=== PATIENT | female | born 1965 | race Caucasian/White ===

== ENCOUNTER 2018-06-20 21:46 | Observation (INO) | payer BC ==
[2018-06-20] MEDS ORDERED: METOCLOPRAMIDE 10 MG INJ IV (22:30)
[2018-06-20] MEDS ORDERED: NITROGLYCERIN (SL) 0.4 MG TAB SL (22:30)
[2018-06-20] MEDS ORDERED: ONDANSETRON 4 MG INJ IV (22:30)
[2018-06-20] MEDS ORDERED: BISACODYL (EC) 5 MG TAB PO (22:30)
[2018-06-20] MEDS ORDERED: morphine 2 MG INJ IV (22:30)
[2018-06-20] MEDS ORDERED: NACL 0.9% 3 ML SYG IV (22:30)
[2018-06-20] MEDS ORDERED: ACETAMINOPHEN 325 MG TAB PO (22:30)
[2018-06-20] MEDS ORDERED: DOCUSATE SODIUM 100 MG CAP PO (22:30)
[2018-06-20 22:49] LABS: ADD MAN DIFF? NO
[2018-06-20 22:50] LABS: BASOPHILS % 0.6 % (0.0-2.0); EOSINOPHILS # 0.1 10^3/ul (0.0-0.5); EOSINOPHILS % 1.8 % (0.0-7.0); HEMATOCRIT 34.3 % (37.0-47.0); HEMOGLOBIN 11.1 g/dl (12.0-16.0); LYMPHOCYTES # 0.8 10^3/ul (0.8-2.9); LYMPHOCYTES % 15.9 % (15.0-51.0); MEAN CORPUSCULAR HEMOGLOBIN 27.9 pg (29.0-33.0); MEAN CORPUSCULAR HGB CONC 32.4 g/dl (32.0-37.0); MEAN CORPUSCULAR VOLUME 86.2 fl (82.0-101.0); MEAN PLATELET VOLUME 10.8 fl (7.4-10.4); MONOCYTE # 0.4 10^3/ul (0.3-0.9); MONOCYTES % 7.5 % (0.0-11.0); NEUTROPHIL # 3.7 10^3/ul (1.6-7.5); NEUTROPHILS % 73.8 % (39.0-77.0); PLATELET COUNT 242 10^3/UL (140-415); RED BLOOD COUNT 3.98 10^6/ul (4.20-5.40); RED CELL DISTRIBUTION WIDTH 13.5 % (11.5-14.5)
[2018-06-20 23:07] LABS: ALANINE AMINOTRANSFERASE 243 IU/L (13-69); ALBUMIN 3.8 g/dl (3.3-4.9); ALBUMIN/GLOBULIN RATIO 1.08; ALKALINE PHOSPHATASE 107 IU/L (42-121); ANION GAP 6 (5-13); ASPARTATE AMINO TRANSFERASE 406 IU/L (15-46); BILIRUBIN,INDIRECT 0.6 mg/dl (0-1.1); BILIRUBIN,TOTAL 0.6 mg/dl (0.2-1.3); BLOOD UREA NITROGEN 13 mg/dl (7-20); CALCIUM 9.2 mg/dl (8.4-10.2); CARBON DIOXIDE 27 mmol/L (21-31); CHLORIDE 106 mmol/L (97-110); CREATINE KINASE 80 IU/L (23-200); CREATININE 0.77 mg/dl (0.44-1.00); Estimated GFR > 60 mL/min (>60); GLUCOSE 122 mg/dl (70-220); POTASSIUM 4.1 mmol/L (3.5-5.1); SODIUM 139 mmol/L (135-144); TOTAL PROTEIN 7.3 g/dl (6.1-8.1)
[2018-06-20 23:19] LABS: CK INDEX 1.1; CK-MB 0.88 ng/ml (0.0-2.4); TROPONIN-I < 0.012 ng/ml (0.000-0.120)
[2018-06-21 05:01] LABS: ADD MAN DIFF? NO
[2018-06-21 05:07] LABS: BASOPHILS % 0.5 % (0.0-2.0); EOSINOPHILS # 0.1 10^3/ul (0.0-0.5); EOSINOPHILS % 2.7 % (0.0-7.0); HEMATOCRIT 33.7 % (37.0-47.0); HEMOGLOBIN 10.9 g/dl (12.0-16.0); LYMPHOCYTES # 0.9 10^3/ul (0.8-2.9); LYMPHOCYTES % 25.1 % (15.0-51.0); MEAN CORPUSCULAR HEMOGLOBIN 28.1 pg (29.0-33.0); MEAN CORPUSCULAR HGB CONC 32.3 g/dl (32.0-37.0); MEAN CORPUSCULAR VOLUME 86.9 fl (82.0-101.0); MONOCYTE # 0.4 10^3/ul (0.3-0.9); MONOCYTES % 10.5 % (0.0-11.0); NEUTROPHIL # 2.3 10^3/ul (1.6-7.5); NEUTROPHILS % 60.9 % (39.0-77.0); PLATELET COUNT 243 10^3/UL (140-415); RED BLOOD COUNT 3.88 10^6/ul (4.20-5.40); RED CELL DISTRIBUTION WIDTH 13.4 % (11.5-14.5)
[2018-06-21 05:07] LABS: WHITE BLOOD COUNT 3.7 10^3/ul (4.8-10.8)
[2018-06-21 05:17] LABS: CREATINE KINASE 76 IU/L (23-200)
[2018-06-21 05:27] LABS: ALANINE AMINOTRANSFERASE 325 IU/L (13-69); ALBUMIN 3.5 g/dl (3.3-4.9); ALBUMIN/GLOBULIN RATIO 1.09; ALKALINE PHOSPHATASE 106 IU/L (42-121); ANION GAP 5 (5-13); ASPARTATE AMINO TRANSFERASE 381 IU/L (15-46); BILIRUBIN,INDIRECT 0.5 mg/dl (0-1.1); BILIRUBIN,TOTAL 0.5 mg/dl (0.2-1.3); BLOOD UREA NITROGEN 12 mg/dl (7-20); CALCIUM 9.5 mg/dl (8.4-10.2); CARBON DIOXIDE 28 mmol/L (21-31); CHLORIDE 108 mmol/L (97-110); CHOL/HDL RATIO 2.7 RATIO; CHOLESTEROL 150 mg/dl (100-200); CK INDEX 1.1; CK-MB 0.84 ng/ml (0.0-2.4); CREATININE 0.75 mg/dl (0.44-1.00); Estimated GFR > 60 mL/min (>60); GLUCOSE 96 mg/dl (70-220); HDL CHOLESTEROL 55 mg/dl (37-92); LDL CHOLESTEROL,CALCULATED 88 mg/dl; POTASSIUM 4.3 mmol/L (3.5-5.1); SODIUM 141 mmol/L (135-144); TOTAL PROTEIN 6.7 g/dl (6.1-8.1); TRIGLYCERIDES 36 mg/dl (0-149)
[2018-06-21 05:30] LABS: TROPONIN-I < 0.012 ng/ml (0.000-0.120)
[2018-06-21 07:01] LABS: THYROID STIMULATING HORMONE 0.635 MIU/L (0.465-4.680)
[2018-06-21 07:50] LABS: HEMOGLOBIN A1C 5.7 % (0-5.9)
[2018-06-21] MEDS: ASPIRIN 81 MG TAB PO (09:43)
== END 2018-06-21 15:55 | disposition home or self-care (01) ==
LOC: 6WM 21:46
DX: R07.9 Chest pain, unspecified (principal); M06.9 Rheumatoid arthritis, unspecified; M32.9 Systemic lupus erythematosus, unspecified; D64.9 Anemia, unspecified; K76.0 Fatty (change of) liver, not elsewhere classified; K21.9 Gastro-esophageal reflux disease without esophagitis
CPT/HCPCS: 76705; 80053; 80061; 82306; 82550; 82553; 83036; 83735; 84443; 84484; 85025; 93005; 93306; 99217; G0378